=== PATIENT | male | born 1960 | race Caucasian/White ===

== ENCOUNTER 2020-03-16 11:22 | Emergency (ER) | payer OTHER, SELFPAY ==
--- NOTE | ~2020-03-16 | XR_ITS ---
EXAMINATION: XR knee RT min 4V DATE: 03/16/2020 11:54 INDICATION: Right knee pain TECHNIQUE: Four views of the right knee were obtained. COMPARISON: None. FINDINGS: There are changes of right total knee arthroplasty. There is no evidence of hardware failur e or loosening. Alignment is normal. No fracture or osteochondral lesion. There is a moderate size ri ght knee joint effusion. Soft tissues are unremarkable. IMPRESSION: 1. Moderate size knee joint effusion without acute osseous abnormality. Reviewed, dictated and finalized at location A.
[2020-03-16 11:43] VITALS: BP 155/91; PULSE 74; RESP 16; TEMP 36.3; O2SAT 98
--- NOTE | 2020-03-16 11:53 | ED.GENADULT ---
HPI - General Adult General Chief complaint: Extremity Injury, Lower Stated complaint: fell right knee pain Time Seen by Provider: 03/16/20 11:53 Source: patient Mode of arrival: ambulatory Limitations: no limitations History of Present Illness HPI narrative: 59-year-old male patient [facility] with complaints of right knee pain. Patient states that he was at work today and states that a coworker was sliding a box across the floor and it actually hit him in the backs of his legs causing him to fall onto a couple of pallets hitting his right knee. Patient states he has had bilateral knee replacements in the past. Patient states that he did go to the nurse's office and did ice the knee for about 25 minutes. Patient states he noticed that it is a little bit better whenever he is walking on it but heard a loud pop while in the nurse's office and was concerned about this. Patient rates his pain at this time about 5 out of 10 but denies taking any Tylenol or ibuprofen for today. Patient was notified on time of arrival that we do not fill out any Workmen's Comp. injury papers here nor can I put him on restrictions. Patient chose to go ahead and be seen anyway. Related Data Home Medications Medication Instructions Recorded Confirmed cabergoline mg 03/16/20 carbamazepine mg PO 03/16/20 levothyroxine 03/16/20 levothyroxine 03/16/20 lisinopril 03/16/20 meloxicam 03/16/20 pravastatin 03/16/20 zonisamide 03/16/20 Allergies Allergy/AdvReac Type Severity Reaction Status Date / Time No Known Allergies Allergy Unknown Unverified 07/20/19 14:50 No Known Allergies Allergy Uncoded 07/20/19 14:50 Review of Systems Review of Systems: Narrative: CONSTITUTIONAL: Denies fever, chills, or sweats. EYES: Denies visual changes, redness, or discharge. ENT: Denies rhinorrhea, congestion, sore throat, or otalgia. CARDIOVASCULAR: Denies chest pain, palpitations, or edema. RESPIRATORY: Denies cough or dyspnea. GASTROINTESTINAL: Denies abdominal pain, nausea, vomiting, or diarrhea. GENITOURINARY: Denies dysuria or hematuria. SKIN: Denies rash or itching. MUSCULOSKELETAL: Denies back pain, joint pain, or myalgia. Positive right knee pain NEUROLOGIC: Denies headache, numbness, or weakness. PSYCHIATRIC: Denies anxiety or depression. PMFSH Comments At the time of my signature I agree with nursing past medical history, surgical, social, and family history. There is no relevant family history pertinent to the presenting complaint. Exam Narrative: Exam Narrative: GENERAL: Well-appearing, well-nourished, and in no acute distress. HEAD: Normocephalic, atraumatic. EYES: PERRLA and EOMI. ENT: Nares clear, no rhinorrhea or epistaxis. Mucous membranes moist. NECK: Supple. No lymphadenopathy CHEST: Clear to auscultation. No respiratory distress. HEART: Regular rate and rhythm. No murmur heard. Normal peripheral pulses. ABDOMEN: Soft, nontender, nondistended, normal active bowel sounds. EXTREMITIES: Patient is able to bear weight and ambulate on right knee. No surface trauma, STS, or obvious effusion. No overlying erythema or warmth. Patient does have some swelling to the right knee as compared to the left. The R knee is without obvious asymmetry or deformity when compared to the L knee. Patient is able to do deep knee bend with symmetry, fully extend knee patient does have some popping and pain during this movement, normal internal and external rotation. tendernss to palpation of the patella, possible effusion, no ballottement. No tenderness over the infrapatellar tendon. No tenderness over the medial or lateral joint lone ot the medial or lateral tibial plateaus. no tenderness over the proximal fibular head. no tenderness, fullness, or mass of the popliteal fossa. No quadriceps tenderness. No laxity of the ACL, PCL, MCL, or LCL. No collateral ligament laxity to valgus or vargus stress. Negative brenton/drawer sign. Negative Ye.
== END 2020-03-16 12:13 | disposition home or self-care (01) ==
PROVIDERS: Emergency Provider Nurse Practitioner Family; PCP Family Medicine Sports Medicine
DX: M25.461 Effusion, right knee (principal); Z96.653 Presence of artificial knee joint, bilateral; I10 Essential (primary) hypertension; E78.00 Pure hypercholesterolemia, unspecified; W18.09XA Striking against other object with subsequent fall, initial encounter
CPT/HCPCS: 73564; 99213; G0463

== ENCOUNTER 2025-06-12 19:49 | Emergency (ER) | payer OTHER, SELFPAY ==
--- OUTSIDE RECORDS SUMMARY | 2009-04-21 08:00 | XMS_ITS | Continuity of Care Document ---
Author Organization [facility] Address [address] [place] [address] Phone Care Team Providers Care Ip Counsel Name Role Phone Adwoa ADAMS MD, Felipe Unavailable Unavaila ble Procedures Procedure Date Work/medical disability examination [facility] Prolonged serv, w/o contact, 1st hr Special Narrative Report Work/medical disability examination I Yvon E X-ray exam of knee, 1 or2 views 008 X-ray exam of both knees, standing Prolonged serv, w/o contact, 1st hr Advance Directives Directive Yes / No Effective Date File Name No Information Encounters Encounter Description Practice Location Reason(s) For Visit Diagnoses Date Provider Providers Copied on Encounter Work/medical disability examination [facility], [address] [place] [address], [id number], [place] tel:[phone] [facility] No Information 9 Adwoa Wang. [facility] [address], [id number] , [place]. tel: [phone] [facility], [address] [place] [address], [id number], [place] tel:[phone] [facility] No Information 8 Adwoa Wang. [address] [place] [address], [address], [id number] , [place]. tel: [phone] Work/medical disability examination I M E [facility], [address] [place] [address], [id number], tel:[phone] [facility] No Information Adwoa Wang. [address] [facility] [address], [place], [place], [id number] , [place]. tel: [phone] Family History Family Member Type Diagnosis Age At Onset No Information Payers Payer name Insurance type Covered green party ID Authoriza lina(s) [facility] [id number] Social History Type Description Quantity Date Captured Comments Sex Male Smoking Status No Information Chief Complaint And Reason For Visit No Information Reason For Referral Reason For Referral No Information History Of Present Illness Encounter Date Complaint History Of Prese nt Illness No Information Functional Status Date Functional Assessmen t No Information Instructions Date Instruction Additional Infor mation No Information Assessments Type Assessment Date No Information Patient Care Teams Name Effective Dates (start - stop) Status Members No Information
--- NOTE | ~2025-06-12 | XR_ITS ---
EXAMINATION: XR chest 1V portable 06/12/2025 20:10 INDICATION: Seizure PROCEDURE: AP portable chest COMPARISON: 07/20/2019 FINDINGS: The lungs are clear. The cardiomediastinal silhouette is within normal limits. There are no pleural effusions. There is no pneumothorax suspected. There are calcified granulomas of the lungs. IMPRESSION: 1: NO ACUTE CARDIOPULMONARY DISEASE. Reviewed, dictated and finalized at location O.
[2025-06-12 19:50] VITALS: PULSE 70; RESP 16; TEMP 36.9; O2SAT 98
[2025-06-12 19:57] VITALS: O2SAT 98
--- NOTE | 2025-06-12 20:00 | ECG_ITS ---
Test Date: 2025-06-12 20:12:57 Measurements Intervals [place] Rate: 68 P: -7 OH: 186 QRS: 27 QRSD: 104 T: 32 QT: 390 QTc: 415 Interpretive Statements SINUS RHYTHM NORMAL ECG No previous ECG available for comparison Electronically Signed On 06-13-2025 12:18:07 CDT by Avtar Morris M.D.
[2025-06-12 20:19] LABS: Hematocrit 32.1 % (42.0-52.0); Hemoglobin 10.3 g/dL (14.0-18.0); Immature Granulocyte Percent A 0.4 % (0-0.5); Lymphocytes Absolute Auto 1.03 K/mm3 (0.9-3.2); Mean Corpuscular HGB Conc 32.1 g/dl (32-36); Mean Corpuscular Hemoglobin 28.8 pg (26-34); Mean Corpuscular Volume 89.7 fl (80-100); Nucleated Red Blood Cells Absolute Auto 0.000 K/mm3 (0.0-0.012); Nucleated Red Blood Cells Perc 0.0 % (0.0-0.2); Platelet Count Result 156 k/mm3 (150-375); Red Blood Count 3.58 M/mm3 (4.6-6.20); White Blood Count 7.1 K/mm3 (4.5-10.0)
[2025-06-12 20:30] LABS: Add Urine Microscopic? YES; Appearance Urine Clear (Clear); Glucose Urine UA Negative (Negative); Leukocyte Esterase Ur Negative LEU/UL (Negative); Nitrate Urine Negative (Negative); Specific Grav Ur 1.029 (1.001-1.035)
[2025-06-12 20:47] LABS: Alanine Aminotransferase 13 U/L (6-50); Albumin Level 3.9 g/dL (3.5-5.1); Alkaline Phosphatase 139 U/L (38-126); Anion Gap 7 mmol/L (4-12); Aspartate Amino Transferase 24 U/L (17-59); Bilirubin,Total 0.4 mg/dL (0.2-1.3); Blood Urea Nitrogen 22 mg/dL (9-20); Calcium 8.3 mg/dL (8.4-10.2); Carbon Dioxide 24 mmol/L (22-30); Chloride 108 mmol/L (98-107); Creatine Kinase 157 U/L (55-170); Estimated CRCL calculation 94 ml/min; Estimated Glomerular Filt Rate 58; Glucose 112 mg/dL (65-110); Potassium 3.9 mmol/L (3.4-5.0); Sodium 139 mmol/L (137-145); Total Protein 6.5 g/dL (6.3-8.2)
--- NOTE | 2025-06-12 21:12 | ED_ITS ---
HPI - General Adult General Chief complaint: Seizure Stated complaint: AMS, HX OF PARTIAL COMPLEX SX Time Seen by Provider: 06/12/25 19:55 History of Present Illness HPI narrative: Patient is a 64-year-old male who presents emergency department this evening status post breakthrough seizure. Patient does have a history of partial complex seizures hand does see a neurologist at of [facility]. Patient is on seizure medications which he takes regularly. States that he has an upcoming appointment with his neurologist where they might we adjust the dosing of his medications. They did 1 increase the dose of 1 of his meds but he it was giving him headaches so they are trying to work on finding a good balance with his meds. Patient states that he was at work moving boxes and had an episode where he got confused. His coworkers noticed that and were able to help him sit in a chair. Patient not fall or hit his head. Patient states that they were asking him questions but he could not really answer them. Upon EMS arrival, patient was alert and oriented to person, place, time and situation and back to his baseline. Answering all questions appropriately at this time. Patient states that this is exactly how his partial complex seizures present. His last one was August of 2024. Related Data Home Medications ?Medication ?Instructions ?Recorded ?Confirmed ?Last Taken ?Type cabergoline 0.5 mg tablet mg 03/16/20 Unknown History carbamazepine 200 mg mg PO 03/16/20 Unknown Hist ory tablet,extended release,12 hr levothyroxine 300 mcg tablet 03/16/20 Unknown Histor y levothyroxine 50 mcg tablet 03/16/20 Unknown History lisinopril 20 mg tablet 03/16/20 Unknown History meloxicam 15 mg tablet 03/16/20 Unknown History pravastatin 40 mg tablet 03/16/20 Unknown History zonisamide 100 mg capsule 03/16/20 Unknown History Allergies Allergy/AdvReac Type Severity Reaction Status Date / Time No Known Allergies Allergy Unknown Verified 06/12/25 20:28 Review of Systems 2 Review of Systems: All systems are reviewed and are negative unless stated otherwise in the HPI. Exam 2 Narrative: General: Alert, awake, afebrile, in no acute distress. HEENT: PERRL, no rhinorrhea, no post nasal drip, oropharynx clear. Neck: Trachea midline, no JVD, no lymphadenopathy. Cardiovascular: Regular rate and rhythm, no murmurs, rubs or gallops, no peripheral edema. Respiratory: Clear to auscultation bilaterally, no tachypnea, no wheezing, no rhonchi, no rubs, no respiratory distress. Abdomen: Soft, nontender, nondistended, no rebound, no guarding, no peritoneal signs. Musculoskeletal: No joint swelling or deformity, normal muscle tone. Skin: No rashes or petechia, no signs of infection. Psychiatric: Alert and oriented, normal behavior and judgment for situation. Neurological: Alert and oriented to person, place, and time. Follows all commands. No focal deficits, 5/5 motor strength in the bilateral upper and lower extremity, sensation intact and equal in the bilateral upper and lower extremity, cranial nerves 2-12 grossly intact speech is clear and fluent. Course Vital Signs Vital signs: Vital Signs Temperature 98.5 F 06/12/25 19:50 Pulse Rate 70 06/12/25 19:50 Respiratory Rate 16 06/12/25 19:50 Pulse Oximetry 98 06/12/25 19:50 Oxygen Delivery Room Air 06/12/25 19:50 Temperature 98.5 F 06/12/25 19:50 Pulse Rate 70 06/12/25 19:50 Respiratory Rate 16 06/12/25 19:50 Pulse Oximetry 98 06/12/25 19:57 Oxygen Delivery Room Air 06/12/25 19:57 Medical Decision Making MDM Narrative Medical decision making narrative: The patient was evaluated by myself in the emergency department. History is obtained from patient who is an independent historian and physical exam was performed. External medical records were reviewed at this time. IV was established and pertinent tests were ordered. EKG was obtained which revealed sinus rhythm rate 68 beats per minute. No ST changes, T wave inversions or evidence of acute ischemia. EKG was independently interpreted by me and is currently pending official cardiology read. Laboratory results obtained revealing no acute process. Urinalysis unremarkable. Imaging studies obtained included CXR which was independently interpreted by me revealing no acute cardiopulmonary process, which is pending final radiology interpretation. Differential diagnosis considerations include breakthrough seizure, infectious process such as pneumonia/UTI, dehydration, electrolyte derangements Comorbidities impacting this visit include history of partial complex seizures. I have evaluated and discussed social determinants of health with the patient that could potentially impact subsequent diagnosis and treatment plans. On repeat assessment of the patient, reevaluation revealed that the patient is doing well and is in no acute distress. Patient symptoms have improved since he arrived to our emergency department. Repeat vital signs were all reviewed and noted to be stable. Differential diagnosis and treatment plan were discussed with the patient at bedside. Patient agrees with discussion and after shared medical decision making agrees with discharge. All questions were answered to the patient's satisfaction. Patient will follow up with Neurologist in 3-5 days. Patient was provided with strict return precautions and instructed to return to the emergency department if any new or worsening symptoms develop. The patient was discharged in stable condition. Vital Signs Vital Signs: Vital Signs Temperature 98.5 F 06/12/25 19:50 Pulse Rate 70 06/12/25 19:50 Respiratory Rate 16 06/12/25 19:50 Pulse Oximetry 98 06/12/25 19:50 Oxygen Delivery Room Air 06/12/25 19:50 Temperature 98.5 F 06/12/25 19:50 Pulse Rate 70 06/12/25 19:50 Respiratory Rate 16 06/12/25 19:50 Pulse Oximetry 98 06/12/25 19:57 Oxygen Delivery Room Air 06/12/25 19:57 Lab Data 06/12/25 20:13 06/12/25 20:13 Labs: Lab Results 06/12/25 06/12/25 06/12/25 Range/Units 20:12 20:13 20:21 WBC 7.1 (4.5-10.0) K/mm3 RBC 3.58 L (4.6-6.20) M/mm3 Hgb 10.3 L (14.0-18.0) g/dL Hct 32.1 L (42.0-52.0) % MCV 89.7 (80-100) fl MCH 28.8 (26-34) pg MCHC 32.1 (32-36) g/dl RDW 13.7 (11.5-14.5) % Plt Count 156 (150-375) k/mm3 MPV 8.7 (7.4-10.4) fl Immature Gran % (Auto) 0.4 (0-0.5) % Neut % (Auto) 74.2 H (45.5-73.1) % Lymph % (Auto) 14.6 L (18.3-44.2) % Logan % (Auto) 6.8 (2.6-8.5) % Eos % (Auto) 3.4 (0-4.4) % Baso % (Auto) 0.6 (0.2-1.2) % Lymph # (Auto) 1.03 (0.9-3.2) K/mm3 Logan # (Auto) 0.5 (0.1-0.6) K/mm3 Eos # (Auto) 0.2 (0-0.3) K/mm3 Baso # (Auto) 0.0 (0.0-0.1) K/mm3 Abs Immat Gran (auto) 0.03 (0.00-0.031) K/mm3 Absolute Neuts (auto) 5.3 (1.3-6.7) K/mm3 Absolute Nucleated RBC 0.000 (0.0-0.012) K/mm3 Nucleated RBC % 0.0 (0.0-0.2) % Sodium 139 (137-145) mmol/L Potassium 3.9 (3.4-5.0) mmol/L Chloride 108 H (98-107) mmol/L Carbon Dioxide 24 (22-30) mmol/L Anion Gap 7 (4-12) mmol/L BUN 22 H (9-20) mg/dL Creatinine 1.26 (0.7-1.3) mg/dL Estim Creat Clear Calc 94 ml/min Estimated GFR 58 L (59 - ) Glucose 112 H (65-110) mg/dL Lactic Acid 1.0 (0.7-2.0) mmol/L Calcium 8.3 L (8.4-10.2) mg/dL Total Bilirubin 0.4 (0.2-1.3) mg/dL AST 24 (17-59) U/L ALT 13 (6-50) U/L Alkaline Phosphatase 139 H (38-126) U/L Total Creatine Kinase 157 (55-170) U/L Total Protein 6.5 (6.3-8.2) g/dL Albumin 3.9 (3.5-5.1) g/dL Urine Color Yellow (Yellow) Urine Appearance Clear (Clear) Urine pH 5.5 (5.0-9.0) Ur Specific [place] 1.029 (1.001-1.035) Urine Protein 1+ H (Negative) mg/dL Urine Glucose (UA) Negative (Negative) mg/dL Urine Ketones Trace H (Negative) mg/dL Ur Blood (Man) Negative (Negative) Urine Nitrate Negative (Negative) Urine Bilirubin Negative (Negative) Urine Urobilinogen 1.0 (<2.0) mg/dL Leukocyte Esterase Rfl Negative (Negative) AMIRA/UL Urine RBC 0-2 (0-2) /hpf Urine WBC 0-5 (0-3) /hpf Ur Squamous Epith Cells None seen (Few) /hpf Urine Bacteria None seen /hpf Urine Casts 3-5 Discharge Plan Discharge Clinical Impression: Focal seizure Patient Disposition: Home Condition: Improved Instructions: Antibiotic Form, Epilepsy (ED) Additional Instructions: Please follow-up with your neurologist within the next 3-5 days. Return to the emergency department if any new or worsening symptoms develop. Patient Language: Kazakh Prescriptions: No Action pravastatin 40 mg tablet levothyroxine 300 mcg tablet meloxicam 15 mg tablet lisinopril 20 mg tablet zonisamide 100 mg capsule carbamazepine 200 mg tablet extended release 12 hr PO levothyroxine 50 mcg tablet cabergoline 0.5 mg tablet Follow-up/Referrals: Carissa,Farhan Aguirre MD [Primary Care Provider, Unknown] - 3 Days Time of Disposition: 21:17
--- OUTSIDE RECORDS SUMMARY | 2025-06-12 21:23 | XMS_ITS | Encounter Summary ---
Author Organization [facility] Facility Care Team Providers Care Materials Mgmt Tech Name Role Phone Waqas Tiwari MD Primary Care Provide r Unknown, Notinfile Primary Care Provider Unavail able Farhan Ferrer MD Primary Care Provider + Encounter Details Date Type Department Care Team (Latest Contact Info) Description 10/31/2017 Orders Only [facility] ProviderLiana MD [address] [place], [place] [id number] Social History Tobacco Use Types Packs/Day Years Used Date Smoking Tobacco: Never Sex and Gender Information Value Date Recorded Sex Assigned at Not on file 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 us Historical Provider Final Res ult documented in this encounter Visit Diagnoses Not on filedocumented in this encounter Care Teams Materials Mgmt Tech Relationship Specialty Start Date End Date Waqas Tiwari MD [address] [facility] [address] [place] [address] PCP - General 02/08/17 01/28/18 Unknown, Notinfile PCP - General 01/29/18 02/08/18 Farhan Ferrer MD PCP - General 02/09/18 documented as of this encounter
--- OUTSIDE RECORDS SUMMARY | 2025-06-12 21:23 | XMS_ITS | Encounter Summary ---
Author Organization [facility] Facility Care Team Providers Care Retort Loader Name Role Phone Waqas Tiwari MD Primary Care Provide r Unknown, Notinfile Primary Care Provider Unavail able Farhan Ferrer MD Primary Care Provider + Encounter Details Date Type Department Care Team (Latest Contact Info) Description 09/12/2017 Orders Only [facility]IN[facility] ProviderLiana MD [address] [place], [place] [id number] Social History Tobacco Use Types Packs/Day Years Used Date Smoking Tobacco: Never Sex and Gender Information Value Date Recorded Sex Assigned at Not on file Legal Sex Male 12:22 AM RN INTERNATIONAL Gender Identity Male 01/29/2020 6:14 PM CDT Sexual Orientation Not on file documented as of this encounter Plan of Treatment Not on file documented as of this encounter Procedures Procedure Name Priority Date/Time Associated Diagnosis Comments PROCEDURE - RESULT 09/12/2017 12 :00 AM RN INTERNATIONAL documented in this encounter Results * PROCEDURE - RESULT (09/12/2017 12:00 AM RN INTERNATIONAL) Narrative 09/12/2017 12:00 AM RN INTERNATIONAL Ordered by an unspecified provider. us Historical Provider Final Res ult documented in this encounter Visit Diagnoses Not on filedocumented in this encounter Care Teams Retort Loader Relationship Specialty Start Date End Date Waqas Tiwari MD [address] [facility] [address] [place] [address] PCP - General 02/08/17 01/28/18 Unknown, Notinfile PCP - General 01/29/18 02/08/18 Farhan Ferrer MD PCP - General 02/09/18 documented as of this encounter
--- OUTSIDE RECORDS SUMMARY | 2025-06-12 21:23 | XMS_ITS | Encounter Summary ---
Author Organization [facility] Facility Care Team Providers Care Documentation Improvement Specialist Name Role Phone Miscellaneous, Not In File Primary Care Provider Unavailable Waqas Tiwari MD Primary Care Provide r Unknown, Notinfile Primary Care Provider Unavail able Farhan Ferrer MD Primary Care Provider + Encounter Details Date Type Department Care Team (Latest Contact Info) Description 08/17/2016 Orders Only [facility] ProviderLiana MD [address] [place] [id number] Social History Tobacco Use Types Packs/Day Years Used Date Smoking Tobacco: Never Assessed Sex and Gender Information Value Date Recorded Sex Assigned at Not on file 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 Historical Provider Final Res ult documented in this encounter Visit Diagnoses Not on filedocumented in this encounter Care Teams Documentation Improvement Specialist Relationship Specialty Start Date End Date Miscellaneous, Not In File PCP - General 01/23/17 Waqas Tiwari MD [address] [facility] [address] [place] [address] PCP - General 02/08/17 01/28/18 Unknown, Notinfile PCP - General 01/29/18 02/08/18 Farhan Ferrer MD PCP - General 02/09/18 documented as of this encounter
--- OUTSIDE RECORDS SUMMARY | 2025-06-12 21:23 | XMS_ITS | Encounter Summary ---
Author Organization [facility] Facility Care Team Providers Care Vulnerability Assessment Analyst Name Role Phone Miscellaneous, Not In File Primary Care Provider Unavailable Waqas Tiwari MD Primary Care Provide r Unknown, Notinfile Primary Care Provider Unavail able Farhan Ferrer MD Primary Care Provider + Encounter Details Date Type Department Care Team (Latest Contact Info) Description 09/27/2016 Orders Only [facility] ProviderLiana MD [address] [place] [address] Social History Tobacco Use Types Packs/Day Years Used Date Smoking Tobacco: Never Assessed Sex and Gender Information Value Date Recorded Sex Assigned at Not on file 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 Historical Provider Final Res ult documented in this encounter Visit Diagnoses Not on filedocumented in this encounter Care Teams Vulnerability Assessment Analyst Relationship Specialty Start Date End Date Miscellaneous, Not In File PCP - General 01/23/17 Waqas Tiwari MD [address] [facility] [address] [place] [address] PCP - General 02/08/17 01/28/18 Unknown, Notinfile PCP - General 01/29/18 02/08/18 Farhan Ferrer MD PCP - General 02/09/18 documented as of this encounter
--- OUTSIDE RECORDS SUMMARY | 2025-06-12 21:23 | XMS_ITS | Clinical Summary ---
Author Organization [facility] Address [address] [place] [address] Care Team Providers Care Refiner Operator Name Role Phone Farhan Ferrer MD Primary Care Provider + Allergies No known active allergies Medications lisinopril (PRINIVIL,ZESTRIL ) 20 mg tablet 06/11/20 18 Active pravastatin (PRAVACHOL) 40 mg tablet 08/21/20 18 Active aspirin 81 mg chewable tablet daily. Acti ve levothyroxine (SYNTHROID) 50 mcg tabletIndications :Macroprolactinom a (HCC),Pituitary adenoma (HCC),Secondary hypothyroidism TAKE 1 TABLET BY MOUTH ONCE DAILY. ALONG WITH 300 MCG. 90 tablet 3 12/16/19 25 Active ibuprofen 200 mg tab/cap Take 1 tablet/caps ule (200 mg total) by mouth every 6 (six) hours as needed Active amLODIPine (NORVASC) 5 mg tablet Take 1 tablet (5 mg total) by mouth daily 90 tablet 3 03/23/20 25 026 Active semaglutide (WEGOVY) 0.25 mg/0.5 mL auto-injector Inject 0.25 mg under the skin every 7 days 2 mL 1 04/28/20 25 Active zonisamide (ZONEGRAN) 100 mg capsuleIndication s:Partial Epilepsy Treatment Adjunct Take 2 capsules (200 mg total) by mouth every morning AND 3 capsules (300 mg total) nightly. 450 capsule 3 05/27/20 25 026 Active carBAMazepine XR (TEGretol XR) 200 mg 12 hr tabletIndications :Partial epilepsy with impairment of consciousness, intractable (HCC) Take 4 tablets (800 mg total) by mouth every morning AND 5 tablets (1,000 mg total) nightly. 810 tablet 3 05/27/20 25 026 Active cabergoline (DOSTINEX) 0.5 mg tabletIndications :Macroprolactinom a (HCC),Pituitary adenoma (HCC) TAKE 1/2 (ONE-HALF) TABLET BY MOUTH TWICE A WEEK 12 tablet 3 06/02/20 25 Active levothyroxine (SYNTHROID) 300 mcg tabletIndications :Macroprolactinom a (HCC),Pituitary adenoma (HCC),Secondary hypothyroidism TAKE 1 TABLET BY MOUTH ONCE DAILY ALONG WITH 50MCG 90 tablet 06/08/20 25 Active levothyroxine (SYNTHROID) 300 mcg tabletIndications :Macroprolactinom a (HCC),Pituitary adenoma (HCC),Secondary hypothyroidism TAKE 1 TABLET BY MOUTH ONCE DAILY ALONG WITH 50MCG 90 tablet 3 06/24/20 24 025 Discontinued carBAMazepine XR (TEGretol XR) 200 mg 12 hr tabletIndications :Partial epilepsy with impairment of consciousness, intractable (HCC) Take 4 tablets (800 mg total) by mouth every morning AND 5 tablets (1,000 mg total) nightly. 810 tablet 3 11/26/19 25 025 Discontinued(R eorder) zonisamide (ZONEGRAN) 100 mg capsuleIndication s:Partial Epilepsy Treatment Adjunct Take 2 capsules (200 mg total) by mouth every morning AND 3 capsules (300 mg total) nightly. 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 Diclofenac gel twice daily. Follow-up in 6 weeks. Fall on same level from slipping, tripping, or s tumbling 04/06/2020 Overview (04/29/2020): March 16, 2020 Assessment & Plan (04/29/2020 8:16 PM CDT): Strain about the right total knee arthroplasty. Assessment & Plan (04/06/2020 8:31 PM CDT): At work March 16, 2020 slipped from behind as boxes were slid across the floor rolled over would not pallets. Most of his pain was posterior. Iced and elevated. Some improvement. Has not missed work. Follow-up in 4 weeks for repeat evaluation H/O total knee replacement, left 04/06/2020 Assessment & Plan (04/06/2020 8:32 PM CDT): Continue progressive range of motion strengthening. Left knee not as painful as right. Follow-up in 4 weeks H/O total knee replacement, right 05/28/2019 Assessment & Plan (04/29/2020 8:17 PM CDT): Continue progressive range of motion and strengthening per total knee arthroplasty protocol. Diclofenac gel twice daily. Assessment & Plan (04/06/2020 8:32 PM CDT): Continue progressive range of motion and strengthening. Continue ice and elevate as needed. Follow-up in 4 weeks for repeat evaluation. Consider MRI with metal artifact reduction if needed Assessment & Plan (05/28/2019 3:53 PM CDT): Continue progressive range of motion and strengthening. If the right leg pain does not improve consider x-ray of the lumbar spine and right hip. Follow-up in 1 year as needed for the knee. Sooner for the hip and low back if needed. Acute right-sided low back pain with sciatica Assessment & Plan (05/28/2019 3:53 PM CDT): Continue nonsteroidal anti-inflammatories. If no significant improvement consider x-ray and or MRI. HTN (hypertension) 10/04/2016 Assessment & Plan (02/04/2019 3:48 PM CDT): Declines intensification of antihypertensive regimen. Encouraged continued lifestyle modifications. Gonadotropin deficiency 01/12/2015 Assessment & Plan (02/11/2020 6:31 PM CDT): Patient did not tolerate testosterone replacement therapy due to mood changes. Prefers not to restart at this time. Assessment & Plan (02/04/2019 3:46 PM CDT): Had anger issues on the 100 mg weekly dosing, so he stopped. Secondary hypothyroidism 01/12/2015 Assessment & Plan (02/11/2020 6:30 PM CDT): Patient taking synthroid appropriately with free thyroxine level of 1.24 in January 2019. No signs or symptoms concerning for hyper or hypothyroidism. Will continue current dose. Assessment & Plan (02/04/2019 3:45 PM CDT): FT4 WNL. Continue 350 mcg daily. Obesity 01/12/2015 Assessment & Plan (04/06/2020 8:34 PM CDT): We discussed the adverse effects of extra weight on osteoarthritis. The only thing proven to slow the progression of osteoarthritis as weight loss. Every 1 lb lost, relieves 4-6 lb of stress across the knee. Continue weight loss through diet and exercise. Consider low carbohydrate diet. Assessment & Plan (05/28/2019 3:53 PM CDT): Continue weight loss through diet and exercise. Macroprolactinoma 02/01/2011 Assessment & Plan (02/11/2020 6:28 PM CDT): Patient remains on cabergoline without new or recurrent symptoms. Will continue at current dose. Recheck prolactin level, most recently 5.3 in January of 2019. Assessment & Plan (02/04/2019 3:45 PM CDT): Excellent biochemical response to cabergoline overall, though prolactin WNL today. Vitamin D deficiency disease 01/28/2011 Partial epilepsy with impair ment of consciousness, intractable 05/20/2007 Encounters Date Type Department Care Team Description 06/11/2025 Telephone [facility] [address] [place] [address] [place] [address] Prasanna Stanley III, MD Drivers Medical Report Request 05/27/2025 10:00 AM CDT Office Visit [facility] [address] [place] [address] [place] [address] Prasanna Stanley III, MD Partial epilepsy with impairment of consciousness, intractable (HCC) (Primary Dx) 04/29/2025 Telephone [facility] Met[facility] and Lipid [address] [place] [address] [place] [address] Taras Ramirez MD PA ([facility]) 04/28/2025 4:40 PM CDT [facility]medicine [facility] [address] [place] [address] [place] [address] Taras Ramirez MD Secondary hypothyroidism (Primary Dx); Primary hypertension 03/23/2025 12:45 PM CDT Office [facility] [address] [facility] [address] [place] [address] Stef Lawton MD Primary hypertension (Primary Dx) from Last 3 Months Immunizations Immunization Administration Dates Next Due Influenza, Trivalent, Preservative Free, Intramu scular 08/03/2010 Surgical History Surgery Date Site/Laterality Comments TOTAL KNEE ARTHROPLASTY 10/31/2017 Right TOTAL KNEE ARTHROPLASTY 08/31/2016 - 09/30/2016 Left Medical History Medical History Date Comments Obstructive sleep apnea [place] (obs tructive sleep apnea) - (Added by TW Conv) Hypertension Hypothyroidism Seizures (HCC) Benign neoplasm of pituitary gland (HCC) Family History Medical History Relation Name Comments Diabetes Brother 1 Hypertension Brother 2 Diabetes Father Heart disease Father Cancer Mother Diabetes Mother Hyperlipidemia Mother Hypertension Mother Thyroid disease Sister Relation Name Status Comments Brother 1 Brother 2 Father Mother Sister Social History Tobacco Use Types Packs/Day Years Used Date Smoking Tobacco: Never Smokeless Tobacco: Never Tobacco Cessation:Counseling Given: Not Answered Alcohol Use Standard Drinks/Week Comments Never 0 (1 standard drink = 0.6 oz pur e alcohol) AUDIT-C Answer Date Recorded Frequency of Alcohol Consumption Never 05/27/2019 Average Number of Drinks Not on file 019 Frequency of Binge Drinking Not on file 05/02 Sex and Gender Information Value Date Recorded Sex Assigned at Not on file Legal Sex Male 12: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 Gender Identity Male 01/29/2020 6:14 PM CDT Sexual Orientation Not on file 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 on file Not on fang e Obstetrics History Last Filed Vital Signs Vital Sign Reading Time Taken Comments Blood Pressure 154/78 05/27/2025 9:27 AM CDT Pulse 79 05/27/2025 9:27 AM CDT Temperature 36.2 C (97.2 F) 03/23/2025 12:17 PM CDT Respiratory Rate 20 09/07/2019 11:0 0 PM 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 Oxygen Saturation 98% 03/23/2025 12: 17 PM CDT Inhaled Oxygen Concentration - - Weight 176.1 kg (388 lb 3.2 oz) 05/27/2025 9:27 AM CDT Height 190.5 cm (6' 3) 05/27/2025 9:27 AM CDT Body Mass Index 48.52 05/27/2025 9:27 AM CDT Plan of Treatment Health Maintenance Due Date Last Done Comments Colon Cancer Screening-Colonoscopy 1962 Depression Screening 1962 Hepatitis C Screening 1962 Prostate Cancer Screening-PSA 1962 Hepatitis B Screening 1980 Regular Well Visit/Exam 18-64 1980 Zoster Vaccine (1 of 2) 2012 Covid-19 Vaccine ( season) 2025 07/29/2021, 12/10/2020, 11/12/2020 Influenza Vaccine (#1) 2025 , 07/16/2021, 06/12/2020, Additional history exists DTaP/Tdap/Td Vaccine (3 - Td or Tdap) 12/22/2025 12/23/2015, 08/02/2011 Pneumococcal vaccine <65 Aged Out No longer eligible based on patient's age to complete this topic Insurance [facility] WORKERS COMPENSATION GENERIC Advance Directives For more information, please contact: [phone] Documents on File Type Date Recorded Patient Physical Testing Supervisor Expl anation ADVANCE DIRECTIVE 09/13/2016 12:[address] [facility] ER OF CLINICAL APPLICATIONS SPECIALIST FINANCIAL/MEDICAL Care Teams Refiner Operator Relationship Specialty Start Date End Date Farhan Ferrer MD PCP - General 02/09/18
--- OUTSIDE RECORDS SUMMARY | 2025-06-12 21:23 | XMS_ITS | Encounter Summary ---
Author Organization [facility] Facility Care Team Providers Care Nitro Worker Name Role Phone Waqas Tiwari MD Primary Care Provide r Unknown, Notinfile Primary Care Provider Unavail able Farhan Ferrer MD Primary Care Provider + Encounter Details Date Type Department Care Team (Latest Contact Info) Description 09/17/2017 Orders Only [facility] CLINCONV ProviderLiana MD [address] [place], [place] [id number] Social History Tobacco Use Types Packs/Day Years Used Date Smoking Tobacco: Never Sex and Gender Information Value Date Recorded Sex Assigned at Not on file Legal Sex Male 12: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 us Historical Provider Final Res ult documented in this encounter Visit Diagnoses Not on filedocumented in this encounter Care Teams Nitro Worker Relationship Specialty Start Date End Date Waqas Tiwari MD [address] [facility] [address] [place] [address] PCP - General 02/08/17 01/28/18 Unknown, Notinfile PCP - General 01/29/18 02/08/18 Farhan Ferrer MD PCP - General 02/09/18 documented as of this encounter
--- OUTSIDE RECORDS SUMMARY | 2025-06-12 21:23 | XMS_ITS | Encounter Summary ---
Author Organization [facility] Address [address] [facility] [address] [place] [address] Phone Care Team Providers Care Wood Products Manufacturer Name Role Phone Farhan Ferrer MD Primary Care Provider + Encounter Details Date Type Department Care Team (Latest Contact Info) Description 09/15/2022 Orders Only [facility] Marion Mehta, RN [address] [facility] [address] [place], [place] [id number] Social History Tobacco Use Types Packs/Day Years Used Date Smoking Tobacco: Never Cigarettes Smokeless Tobacco: Never Alcohol Use Standard Drinks/Week Comments Never 0 (1 standard drink = 0.6 oz pur e alcohol) AUDIT-C Answer Date Recorded Frequency of Alcohol Consumption Never 05/27/2019 Average Number of Drinks Not on file 019 Frequency of Binge Drinking Not on file 05/02 Sex and Gender Information Value Date Recorded Sex Assigned at Not on file Legal Sex Male 12:22 AM CLOTH PIECER Gender Identity Male 01/29/2020 6:14 PM CDT Sexual Orientation Not on file 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 on file Not on fang e documented as of this encounter Plan of Treatment Not on file documented as of this encounter Procedures Procedure Name Priority Date/Time Associated Diagnosis Comments CARDIOLOGY DOCUMENT SCAN 09/15/2022 documented in this encounter Results * Cardiology Document Scan (09/15/2022) Anatomical Region Laterality Modality Other us Marion Mehta RN CV CARDIAC SERVICES P ROCEDURES Final Result documented in this encounter Visit Diagnoses Not on filedocumented in this encounter Care Teams Wood Products Manufacturer Relationship Specialty Start Date End Date Farhan Ferrer MD PCP - General 02/09/18 documented as of this encounter
--- OUTSIDE RECORDS SUMMARY | 2025-06-12 21:23 | XMS_ITS | Encounter Summary ---
Author Organization [facility] Address [address] [place] [address] Phone Care Team Providers Care Vulnerability Researcher Name Role Phone Farhan Ferrer MD Primary Care Provider + Reason for Visit * Reason Onset Date Comments Drivers Medical Report Request 06/11/2025 Encounter Details Date Type Department Care Team (Late st Contact Info) Description 06/11/2025 Telephone [facility] Epilepsy [address] [facility] [address] [place] [address] [place] [address] Prasanna Stanley III, MD [address] [place] [address] Drivers Medical Report Request Social History Tobacco Use Types Packs/Day Years Used Date Smoking Tobacco: Never Smokeless Tobacco: Never Alcohol Use Standard Drinks/Week Comments Never 0 (1 standard drink = 0.6 oz pur e alcohol) AUDIT-C Answer Date Recorded Frequency of Alcohol Consumption Never 05/27/2019 Average Number of Drinks Not on file 019 Frequency of Binge Drinking Not on file 05/02 Sex and Gender Information Value Date Recorded Sex Assigned at Not on file Legal Sex Male 12: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 Patient last loss of consciousness episode was 09/15/2024. Completed form copy attached to this encounter and mailed original to patients address on file. Lillian documented in this encounter Plan of Treatment Not on file documented as of this encounter Visit Diagnoses Not on filedocumented in this encounter Care Teams Vulnerability Researcher Relationship Specialty Start Date End Date Farhan Ferrer MD PCP - General 02/09/18 documented as of this encounter
--- OUTSIDE RECORDS SUMMARY | 2025-06-12 21:23 | XMS_ITS | Encounter Summary ---
Author Organization [facility] Facility Care Team Providers Care Electric Meter Repairer Apprentice Name Role Phone Miscellaneous, Not In File Primary Care Provider Unavailable Waqas Tiwari MD Primary Care Provide r Unknown, Notinfile Primary Care Provider Unavail able Farhan Ferrer MD Primary Care Provider + Encounter Details Date Type Department Care Team (Latest Contact Info) Description 08/23/2016 Orders Only [facility] CLINCONV ProviderLiana MD [address] [place] [address] Social History Tobacco Use Types Packs/Day Years Used Date Smoking Tobacco: Never Assessed Sex and Gender Information Value Date Recorded Sex Assigned at Not on file Legal Sex Male 12:22 AM COMMUNICATIONS REPRESENTATIVE Gender Identity Male 01/29/2020 6:14 PM CDT Sexual Orientation Not on file documented as of this encounter Plan of Treatment Not on file documented as of this encounter Procedures Procedure Name Priority Date/Time Associated Diagnosis Comments PROCEDURE - RESULT 08/23/2016 12 :00 AM COMMUNICATIONS REPRESENTATIVE documented in this encounter Results * PROCEDURE - RESULT (08/23/2016 12:00 AM COMMUNICATIONS REPRESENTATIVE) Narrative 08/23/2016 12:00 AM COMMUNICATIONS REPRESENTATIVE Ordered by an unspecified provider. Historical Provider Final Res ult documented in this encounter Visit Diagnoses Not on filedocumented in this encounter Care Teams Electric Meter Repairer Apprentice Relationship Specialty Start Date End Date Miscellaneous, Not In File PCP - General 01/23/17 Waqas Tiwari MD [address] [facility] [address] [place] [address] PCP - General 02/08/17 01/28/18 Unknown, Notinfile PCP - General 01/29/18 02/08/18 Farhan Ferrer MD PCP - General 02/09/18 documented as of this encounter
--- OUTSIDE RECORDS SUMMARY | 2025-06-12 21:23 | XMS_ITS | Encounter Summary ---
Author Organization [facility] Facility Care Team Providers Care Hired Hand Name Role Phone Miscellaneous, Not In File Primary Care Provider Unavailable Waqas Tiwari MD Primary Care Provide r Unknown, Notinfile Primary Care Provider Unavail able Farhan Ferrer MD Primary Care Provider + Encounter Details Date Type Department Care Team (Latest Contact Info) Description 09/13/2016 Orders Only [facility] CLINCONV ProviderLiana MD [address] [place] [address] Social History Tobacco Use Types Packs/Day Years Used Date Smoking Tobacco: Never Assessed Sex and Gender Information Value Date Recorded Sex Assigned at Not on file Legal Sex Male 12:22 AM TECHNICAL PHOTOGRAPHER Gender Identity Male 01/29/2020 6:14 PM CDT Sexual Orientation Not on file documented as of this encounter Plan of Treatment Not on file documented as of this encounter Procedures Procedure Name Priority Date/Time Associated Diagnosis Comments SCAN - LABS 09/14/2016 12:00 AM TECHNICAL PHOTOGRAPHER documented in this encounter Results * SCAN - LABS (09/14/2016 12:00 AM TECHNICAL PHOTOGRAPHER) Narrative 09/14/2016 12:00 AM TECHNICAL PHOTOGRAPHER Ordered by an unspecified provider. us Historical Provider Final Res ult documented in this encounter Visit Diagnoses Not on filedocumented in this encounter Care Teams Hired Hand Relationship Specialty Start Date End Date Miscellaneous, Not In File PCP - General 01/23/17 Waqas Tiwari MD [address] [facility] [address] [place] [address] PCP - General 02/08/17 01/28/18 Unknown, Notinfile PCP - General 01/29/18 02/08/18 Farhan Ferrer MD PCP - General 02/09/18 documented as of this encounter
--- OUTSIDE RECORDS SUMMARY | 2025-06-12 21:23 | XMS_ITS | Encounter Summary ---
Author Organization [facility] Address [address] [facility] [address] [place] [address] Phone Care Team Providers Care Aviation Technician Name Role Phone Miscellaneous, Not In File Primary Care Provider Unavailable Waqas Tiwari MD Primary Care Provide r Unknown, Notinfile Primary Care Provider Unavail able Farhan Ferrer MD Primary Care Provider + Encounter Details Date Type Department Care Team (Latest Contact Info) Description 06/23/2016 Orders Only [facility] Marion Mehta, LAUREL [address] [facility] [address] [place] [address] Social History Tobacco Use Types Packs/Day Years Used Date Smoking Tobacco: Never Assessed Sex and Gender Information Value Date Recorded Sex Assigned at Not on file Legal Sex Male 12:22 AM EDUCATIONAL DIRECTOR Gender Identity Male 01/29/2020 6:14 PM CDT Sexual Orientation Not on file documented as of this encounter Plan of Treatment Not on file documented as of this encounter Procedures Procedure Name Priority Date/Time Associated Diagnosis Comments CARDIOLOGY DOCUMENT SCAN 06/23/2016 documented in this encounter Results * Cardiology Document Scan (06/23/2016) Anatomical Region Laterality Modality Other us Marion Mehta RN CV CARDIAC SERVICES P ROCEDURES Final Result documented in this encounter Visit Diagnoses Not on filedocumented in this encounter Care Teams Aviation Technician Relationship Specialty Start Date End Date Miscellaneous, Not In File PCP - General 01/23/17 Waqas Tiwari MD [address] [facility] [address] [place] [address] PCP - General 02/08/17 01/28/18 Unknown, Notinfile PCP - General 01/29/18 02/08/18 Farhan Ferrer MD PCP - General 02/09/18 documented as of this encounter
== END 2025-06-12 21:32 | disposition home or self-care (01) ==
LOC: ANHED 21:21
PROVIDERS: Emergency Provider Emergency Medicine; PCP Family Medicine Sports Medicine
DX: G40.89 Other seizures (principal)
CPT/HCPCS: 36415; 71045; 80053; 81001; 82550; 83605; 85025; 93005; 99283